=== PATIENT | male | born 1990 | race Two or more races ===

== ENCOUNTER 2018-10-28 18:20 | Inpatient (IN) | payer OTHER ==
[~2018-10-28] VITALS: Ht 175.3 cm; Wt 79.0 kg
--- NOTE | 2018-10-28 18:49 | NUR ---
PT A&OX4, RESP EVEN & UNLABORED, SPEECH CLEAR. STATES PAIN STARTED "A WEEK AGO", WORSENED ON 10/26; INTERMITTENT, WORSENS W/ MOVEMENT. GENERALIZED ABD PAIN; WORSE IN RLQ. LAST FOOD INTAKE: YESTERDAY, HAD WATER TODAY. REPORTS SOME CONSTIPATION, DENIES DIARRHEA, LAST BM: YESTERDAY. DR VENTURA NOW BS FOR EXAM.
[2018-10-28] MEDS ORDERED: PIPERACILLIN/TAZO/PMX 4.5GM 100 ML IV ONE (19:00)
[2018-10-28] MEDS ORDERED: SODIUM CHLORIDE 0.9% 1,000ML IVBOLUS ONE (19:00)
[2018-10-28] MEDS ORDERED: ONDANSETRON 2MG/ML, 2ML IVPush ONE (19:00)
[2018-10-28] MEDS ORDERED: HYDROmorphone 2 MG/ML, 1ML IVPush PRN (19:00)
[2018-10-28] MEDS ORDERED: ONDANSETRON 2MG/ML, 2ML ONE (19:08)
--- NOTE | 2018-10-28 19:13 | NUR ---
BRIANNA ORDERED FROM PHARMACY. PT'S DAD AT BS.
[2018-10-28 19:18] LABS: BASOPHILS # (AUTO) 0.08 x10^3/uL (0-0.1); BASOPHILS % (AUTO) 1 % (0-1); EOSINOPHILS # (AUTO) 0.17 x10^3/uL (0-0.4); EOSINOPHILS % (AUTO) 1 % (1-7); LYMPHOCYTES # (AUTO) 2.49 x10^3/uL (1-3.4); LYMPHOCYTES % (AUTO) 16 % (22-44); MD NO; MEAN CORPUSCULAR HEMOGLOBIN 30.9 pg (27.5-34.5); MEAN CORPUSCULAR HGB CONC 34.5 g/dL (33.2-36.2); MEAN CORPUSCULAR VOLUME 89.5 fL (81-97); MEAN PLATELET VOLUME 7.8 fL (7.4-10.4); MONOCYTES # (AUTO) 1.06 x10^3/uL (0.2-0.8); MONOCYTES % (AUTO) 7 % (2-9); NEUTROPHILS # (AUTO) 11.72 x10^3/uL (1.8-6.8); NEUTROPHILS % (AUTO) 76 % (42-75); PLATELET COUNT 250 x10^3/uL (130-400); RED BLOOD COUNT 5.33 x10^6/uL (4.38-5.82); RED CELL DISTRIBUTION WIDTH 12.4 % (9.4-14.8)
--- NOTE | 2018-10-28 19:18 | NUR ---
PT REFUSING PAIN MED, AT THIS TIME.
[2018-10-28 19:24] LABS: ALANINE AMINOTRANSFERASE 32 U/L (12-78); ANION GAP 7 mmol/L (5-15); CALCIUM 8.7 mg/dL (8.5-10.1); CHLORIDE 101 mmol/L (98-107)
[2018-10-28 19:27] LABS: ALKALINE PHOSPHATASE 89 U/L (45-117); BILIRUBIN,TOTAL 1.3 mg/dL (0.2-1.0); CREATININE 1.15 mg/dL (0.7-1.3); TOTAL PROTEIN 8.4 g/dL (6.4-8.2)
--- NOTE | 2018-10-28 19:45 | NUR ---
HOSPITALIST BS FOR EXAM. BRIANNA DEL CID, INFUSING AT 200ML/HR VIA PUMP. IV SITE PATENT. PT'S DAD IN ROOM.
[2018-10-28] MEDS ORDERED: ONDANSETRON 2MG/ML, 2ML IVPush PRN (20:00)
[2018-10-28] MEDS ORDERED: MORPHINE SULFATE 4 MG/ML, 1ML IVPush PRN (20:00)
[2018-10-28] MEDS ORDERED: hydrALAzine 20 MG/ML, 1ML IVPush PRN (20:00)
[2018-10-28] MEDS ORDERED: KETOROLAC 30 MG/1 ML IV PRN (20:00)
--- NOTE | 2018-10-28 20:43 | NUR ---
PT REPORT TO MAIA DAHL FOR ROOM [id number]
[2018-10-28 21:30] VITALS: BP 116/80
[2018-10-28] MEDS: D5%-0.45NACL+KCL 20MEQ 1,000 ML IV SCH (22:24)
[2018-10-29 01:50] VITALS: BP 94/64
[2018-10-29] MEDS: PIPERACILLIN/TAZO/PMX 3.375GM 50 ML IV SCH ×4 (02:06→19:16)
[2018-10-29 05:20] LABS: CHLORIDE 107 mmol/L (98-107)
[2018-10-29 05:25] LABS: ANION GAP 7 mmol/L (5-15); CALCIUM 8.2 mg/dL (8.5-10.1); CREATININE 1.17 mg/dL (0.7-1.3)
[2018-10-29] MEDS: D5%-0.45NACL+KCL 20MEQ 1,000 ML IV SCH ×3 (06:21→23:23)
[2018-10-29 06:31] LABS: BASOPHILS # (AUTO) 0.05 x10^3/uL (0-0.1); BASOPHILS % (AUTO) 0 % (0-1); EOSINOPHILS % (AUTO) 2 % (1-7); LYMPHOCYTES # (AUTO) 3.16 x10^3/uL (1-3.4); LYMPHOCYTES % (AUTO) 24 % (22-44); MD NO; MEAN CORPUSCULAR HEMOGLOBIN 30.9 pg (27.5-34.5); MEAN CORPUSCULAR HGB CONC 34.3 g/dL (33.2-36.2); MEAN CORPUSCULAR VOLUME 90.2 fL (81-97); MEAN PLATELET VOLUME 8.2 fL (7.4-10.4); MONOCYTES # (AUTO) 1.09 x10^3/uL (0.2-0.8); MONOCYTES % (AUTO) 8 % (2-9); NEUTROPHILS # (AUTO) 8.77 x10^3/uL (1.8-6.8); NEUTROPHILS % (AUTO) 66 % (42-75); PLATELET COUNT 250 x10^3/uL (130-400); RED BLOOD COUNT 4.93 x10^6/uL (4.38-5.82); RED CELL DISTRIBUTION WIDTH 12.5 % (9.4-14.8)
[2018-10-29 07:59] VITALS: BP 110/74
[2018-10-29 13:48] VITALS: BP 107/70
[2018-10-29 19:09] VITALS: BP 102/68
[2018-10-30 00:42] VITALS: BP 99/67
[2018-10-30] MEDS: PIPERACILLIN/TAZO/PMX 3.375GM 50 ML IV SCH ×2 (01:30→07:47)
[2018-10-30 06:18] LABS: BASOPHILS # (AUTO) 0.03 x10^3/uL (0-0.1); BASOPHILS % (AUTO) 0 % (0-1); EOSINOPHILS # (AUTO) 0.24 x10^3/uL (0-0.4); EOSINOPHILS % (AUTO) 2 % (1-7); LYMPHOCYTES % (AUTO) 29 % (22-44); MD NO; MEAN CORPUSCULAR HEMOGLOBIN 30.8 pg (27.5-34.5); MEAN CORPUSCULAR HGB CONC 33.8 g/dL (33.2-36.2); MEAN CORPUSCULAR VOLUME 91.1 fL (81-97); MONOCYTES # (AUTO) 0.96 x10^3/uL (0.2-0.8); MONOCYTES % (AUTO) 10 % (2-9); NEUTROPHILS # (AUTO) 5.91 x10^3/uL (1.8-6.8); NEUTROPHILS % (AUTO) 59 % (42-75); PLATELET COUNT 256 x10^3/uL (130-400); RED BLOOD COUNT 4.65 x10^6/uL (4.38-5.82); RED CELL DISTRIBUTION WIDTH 12.6 % (9.4-14.8)
[2018-10-30 06:22] LABS: ANION GAP 7 mmol/L (5-15); CALCIUM 8.4 mg/dL (8.5-10.1); CHLORIDE 108 mmol/L (98-107)
[2018-10-30 06:24] LABS: CREATININE 1.14 mg/dL (0.7-1.3)
[2018-10-30 07:47] VITALS: BP 110/71
[2018-10-30] MEDS: D5%-0.45NACL+KCL 20MEQ 1,000 ML IV SCH (07:47)
[2018-10-30] MEDS ORDERED: CIPR500T87 PO (12:23)
[2018-10-30] MEDS ORDERED: METR500T PO (12:23)
[2018-10-30 13:47] VITALS: BP 104/69
== END 2018-10-30 14:59 | disposition home or self-care (01) | DRG 871 ==
LOC: ED 19:25 → EDIP 19:30 → ED 19:37 → 4NOR 21:24 → DCLOUNGE 10-30 14:42
PROVIDERS: ADMIT Internal Medicine; ATTEND Internal Medicine
DX: A41.9 Sepsis, unspecified organism (principal); K35.33 Acute appendicitis with perforation, localized peritonitis, and gangrene, with abscess; F12.10 Cannabis abuse, uncomplicated; Z83.3 Family history of diabetes mellitus
CPT/HCPCS: 36415; 80048; 80053; 83735; 84100; 85025; 96365; 96374; 99285; G0378; J2405; J2543; J3480; J7030

== ENCOUNTER → 2018-10-28 | Outpatient (CLI) | payer OTHER ==
[~2018-10-28] MED LIST: CIPR500T87 PO; METR500T PO; OMNIPAQUE 350 MG/ML, 100ML BOTTLE ONE
== END | disposition home or self-care (01) ==
LOC: RAD 16:05
PROVIDERS: ATTEND Family Medicine
DX: R19.03 Right lower quadrant abdominal swelling, mass and lump (principal); Q43.0 Meckel's diverticulum (displaced) (hypertrophic)
CPT/HCPCS: 74177; Q9967